=== PATIENT | male | born 1995 | race Caucasian/White ===

== ENCOUNTER 2022-08-05 18:46 | Emergency (ER) | payer OTHER, SELFPAY ==
[2022-08-05 18:52] VITALS: BP 158/84; PULSE 88; RESP 16; TEMP 37.2; O2SAT 99; BMI 34.5
--- NOTE | 2022-08-05 18:59 | DI.RAD.S_ITS ---
PROCEDURE: XR CHEST 1V INDICATIONS: chest pain TECHNIQUE: One view of the chest was acquired. COMPARISON: None. FINDINGS: Surgical changes and devices: None. Lungs and pleura: Lungs are clear. No pleural effusions or pneumothorax. Mediastinum: Mediastinal contours appear normal. Heart size is normal. Bones and chest wall: No suspicious bony lesions. Overlying soft tissues appear unremarkable. IMPRESSION: No acute process. Dictated by: Levar Hamilton M.D. on 08/05/2022 at 19:32 Approved by: Levar Hamilton M.D. on 08/05/2022 at 19:32
--- NOTE | 2022-08-05 19:11 | ED.CHESTPAIN ---
HPI - Chest Pain General Chief Complaint: Chest Pain Stated Complaint: chest pain/light headedness/sent by [facility] Time Seen by Provider: 08/05/22 19:03 Source: patient Mode of arrival: Ambulatory Limitations: no limitations History of Present Illness HPI narrative: Patient is sent here for walk-in clinic. Patient has had intermittent substernal left upper quadrant sometimes right-sided and left-sided chest discomfort that is burning in nature. Not pressure. No back pain. Has had intermittent dizziness. The symptoms started 8 months ago and maybe once a week he will get this. He has felt more tired in the past 2 months. Patient denies any exertional chest pain. No sweating. No dyspnea. Currently no chest discomfort or abdominal discomfort. Patient has no history of hypertension hyperlipidemia impaired does not smoke cigarettes. No family history of coronary disease. Patient has low heart score. Patient does not have a family doctor. No previous cardiac workup. No history of heart attack strokes or diabetes. No history of aortic aneurysm or dissection. No history of pulmonary embolism. No recent long travel. Patient states sometimes the burning is worse after eating. Not worse with lying flat. Related Data Allergies Allergy/AdvReac Type Severity Reaction Status Date / Time No Known Drug Allergies Allergy Verified 08/05/22 18:52 Review of Systems Review of Systems Narrative: GENERAL: negative chills, fatigue, malaise, fever, sweats. HEENT: negative sinus pain, ear pain, sore throat RESPIRATORY: negative dyspnea, cough CARDIOVASCULAR: Positive chest pain, negative palpitations GASTROINTESTINAL: negative nausea, vomiting, abdominal pain : negative dysuria, frequency, hematuria MUSCULOSKELETAL: negative muscle or bony pain SKIN: negative rash, skin lesions NEUROLOGIC: negative weakness, numbness, positive intermittent dizziness ROS Unobtainable: All systems reviewed & are unremarkable except as noted in HPI and below Patient History Social History Smoking Status: Former smoker Smoking Status: Former smoker tobacco type: vaping alcohol intake frequency: a few times a month Substance Use Type: does not use Exam Narrative Exam Narrative: GENERAL: in no distress, not toxic not dyspneic HEAD: Normocephalic. EYES: Pupils equal round ENT: Mucous membranes moist. NECK: Trachea midline. CARDIOVASCULAR: Regular rate and rhythm without murmurs, chest is nontender, strong bilateral carotid and radial pulses. Brisk cap refills on the fingers RESPIRATORY: Clear to auscultation. Breath sounds equal bilaterally. No wheezes, rales, or rhonchi. GASTROINTESTINAL: Abdomen soft, non-tender, abdomen soft nontender no peritoneal signs no left upper quadrant epigastric or right upper quadrant tenderness. EXTREMITIES: No gross deformities. BACK: No flank tenderness. NEURO: AOx4. SKIN: Warm and dry PSYCH: Not anxious, is cooperative Initial Vital Signs Initial Vital Signs: Vital Signs Temperature 98.9 F 08/05/22 18:52 Pulse Rate 88 08/05/22 18:52 Respiratory Rate 16 08/05/22 18:52 Blood Pressure 158/84 H 08/05/22 18:52 Pulse Oximetry 99 08/05/22 18:52 Oxygen Delivery Method Room Air 08/05/22 18:52 Scores HEART Score Heart Score history: Slightly Suspicious Heart Score EKG: Normal Heart Score Age: < 45 years old Heart Score risk factors: No known risk factors Heart Score troponin: < or = to normal limit Heart Score Total: 0 Course Orders Ordered: Discontinued Medications Aspirin (Aspirin 81 Mg Chew Tab) 324 mg PO NOW ONE Stop: 08/05/22 19:00 Last Admin: 08/05/22 19:30 Dose: 324 mg Documented By: GABY Vital Signs Vital signs: Vital Signs - 8 hr 08/05/22 21:59 Pulse Rate 86 Respiratory Rate 18 Blood Pressure 138/79 Pulse Oximetry 96 Oxygen Delivery Method Room Air MDM - Chest Pain Lab Data 08/05/22 19:14 08/05/22 19:14 Labs: Lab Results 08/05/22 08/05/22 08/05/22 Range/Units 19:14 19:14 19:14 WBC 7.8 (4.5-11.0) X10^3/uL RBC 5.74 (4.5-5.9) X10^6/uL Hgb 16.3 (13.5-17.5) g/dL Hct 46.9 (41-53) % MCV 81.7 (80-100) fL MCH 28.4 (26-34) PG MCHC 34.7 (30-36) % RDW 13.3 (11.6-14.8) % Plt Count 331 (150-400) X10^3/uL Neut % (Auto) 71.4 (50-75) % Lymph % (Auto) 19.5 L (25-40) % Marshall % (Auto) 7.4 (3-14) % Eos % (Auto) 0.9 L (2-4) % Baso % (Auto) 0.8 (0-2) % Neut # (Auto) 5600 (6649-7394) /uL Lymph # (Auto) 1500 (7055-3920) /uL Marshall # (Auto) 600 (0-900) /uL Eos # (Auto) 100 (0-450) /uL Baso # (Auto) 100 (0-100) /uL PT 12.3 (10.1-12.7) SECONDS INR 1.1 (0.9-1.3) APTT 35 (26-36) SECONDS Sodium 139 (137-145) mmol/L Potassium 4.0 (3.4-5.1) mmol/L Chloride 104 (98-107) mmol/L Carbon Dioxide 27 (22-32) mmol/L BUN 13 (9-20) mg/dL Creatinine 0.86 (0.66-1.25) mg/dL Estimated GFR > 60 (>60) mL/min BUN/Creatinine Ratio 15.1 (6-22) Glucose 95 (70-100) mg/dL Calcium 9.1 (8.4-10.2) mg/dL Magnesium 2.3 (1.6-2.3) mg/dL Total Bilirubin 0.9 (0.2-1.3) mg/dL AST 39 (17-59) IU/L ALT 64 H (<50) IU/L Alkaline Phosphatase 60 (38-126) U/L Total Creatine Kinase 250 H (55-170) U/L CK-MB (CK-2) 2.48 H (<2.37) ng/mL CK-MB (CK-2) Rel Index 1.0 L (1.5-5.0) % Troponin I < 0.012 (0.01-0.034) ng/mL Total Protein 7.9 (6.3-8.2) g/dL Albumin 4.7 (3.5-5.0) g/dL Globulin 3.2 (1.7-4.1) g/dL Albumin/Globulin Ratio 1.5 (1.0-2.8) Lipase 52 (23-300) U/L 08/05/22 Range/Units 20:53 WBC (4.5-11.0) X10^3/uL RBC (4.5-5.9) X10^6/uL Hgb (13.5-17.5) g/dL Hct (41-53) % MCV (80-100) fL MCH (26-34) PG MCHC (30-36) % RDW (11.6-14.8) % Plt Count (150-400) X10^3/uL Neut % (Auto) (50-75) % Lymph % (Auto) (25-40) % Marshall % (Auto) (3-14) % Eos % (Auto) (2-4) % Baso % (Auto) (0-2) % Neut # (Auto) (7219-4630) /uL Lymph # (Auto) (1971-0054) /uL Marshall # (Auto) (0-900) /uL Eos # (Auto) (0-450) /uL Baso # (Auto) (0-100) /uL PT (10.1-12.7) SECONDS INR (0.9-1.3) APTT (26-36) SECONDS Sodium (137-145) mmol/L Potassium (3.4-5.1) mmol/L Chloride (98-107) mmol/L Carbon Dioxide (22-32) mmol/L BUN (9-20) mg/dL Creatinine (0.66-1.25) mg/dL Estimated GFR (>60) mL/min BUN/Creatinine Ratio (6-22) Glucose (70-100) mg/dL Calcium (8.4-10.2) mg/dL Magnesium (1.6-2.3) mg/dL Total Bilirubin (0.2-1.3) mg/dL AST (17-59) IU/L ALT (<50) IU/L Alkaline Phosphatase (38-126) U/L Total Creatine Kinase 228 H (55-170) U/L CK-MB (CK-2) 2.50 H (<2.37) ng/mL CK-MB (CK-2) Rel Index 1.1 L (1.5-5.0) % Troponin I < 0.012 (0.01-0.034) ng/mL Total Protein (6.3-8.2) g/dL Albumin (3.5-5.0) g/dL Globulin (1.7-4.1) g/dL Albumin/Globulin Ratio (1.0-2.8) Lipase (23-300) U/L Imaging Data Chest x-ray: Radiologist's Impression: PROCEDURE:? XR CHEST 1V ? INDICATIONS:? chest pain ? TECHNIQUE:? One view of the chest was acquired.? ? COMPARISON:? None. ? FINDINGS:? ? Surgical changes and devices:? None.? ? Lungs and pleura:? Lungs are clear.? No pleural effusions or pneumothorax.? ? Mediastinum:? Mediastinal contours appear normal.? Heart size is normal.? ? Bones and chest wall:? No suspicious bony lesions.? Overlying soft tissues appear unremarkable.? ? IMPRESSION:? No acute process. MDM Narrative Medical decision making narrative: Patient is sent here for walk-in clinic. Patient has had intermittent substernal left upper quadrant sometimes right-sided and left-sided chest discomfort that is burning in nature. Not pressure. No back pain. Has had intermittent dizziness. The symptoms started 8 months ago and maybe once a week he will get this. He has felt more tired in the past 2 months. Patient denies any exertional chest pain. No sweating. No dyspnea. Currently no chest discomfort or abdominal discomfort. Patient has no history of hypertension hyperlipidemia impaired does not smoke cigarettes. No family history of coronary disease. Patient has low heart score. Patient does not have a family doctor. No previous cardiac workup. No history of heart attack strokes or diabetes. No history of aortic aneurysm or dissection. No history of pulmonary embolism. No recent long travel. Patient states sometimes the burning is worse after eating. Not worse with lying flat. After history and exam CBC CMP lipase troponin EKG chest x-ray, no D-dimer indicated at this time, low risk factors for dissection or pulmonary embolism. Does not clinically correlate MDM CC: Chest pain Complicating co-morbidities: None Data collected from: Patient Medical records reviewed: No previous visits here other than walk-in clinic sent patient here without workup Differential considered: Includes but not limited to STEMI non-STEMI stable angina unstable angina pulmonary embolism aortic dissection acid reflux gastritis pancreatitis costochondritis pleurisy Exam documented above, pertinent findings include: Nontender chest nontender abdomen Lab Test results independently reviewed as above. Pertinent findings: Total creatinine kinase 250 CK-MB 2.48 CK-MB 1.0 troponin less than 0.012, repeat troponin less than 0.012 Independently reviewed EKG as above normal sinus rhythm rate [address] elevation depression Imaging studies independently reviewed: Chest x-ray no acute process Consultations: 9:45 p.m.. Spoke with cardiology, dr lama, appropriate for discharge home. Patient has low heart score. At this time does not sound like cardiac. However would need outpatient stress test to complete workup Treatments: None required here. Patient chest pain-free. Re-evaluations: 9:56 p.m.. Reviewed results with patient. Exam and laboratory studies imaging are reassuring. Reviewed my discussion with cardiology. Patient chest pain-free. Discussion: Appropriate for discharge home. Exam and laboratory studies and imaging are reassuring. Patient has low heart score. 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 Has low risk heart factors. Troponin x2 were negative. No active chest pain here. Patient agrees with treatment plan. Return precautions reviewed with him. He desires discharge home. Patient has components of acid reflux/gastritis. Patient was on omeprazole until 4 months ago when he stopped taking it. Encouraged him to resume taking it. Diagnosis: Atypical chest pain Discharge Plan Departure Patient Disposition: Home Clinical Impression: Atypical chest pain Instructions: DI for Atypical Chest Pain Activity Restrictions/Additional Instructions: See family doctor in a week for re-evaluation of your chest discomfort and to schedule for outpatient cardiac stress test and echocardiogram of the heart. Call provided primary care referral phone number to establish family doctor. Call [phone]. Return if worse if any questions or concerns. At this time your laboratory studies and blood work and chest x-ray and EKG are reassuring. Referrals: Doctor Escudero MD [Primary Care Provider] - Stand Alone Forms: Patient Portal/API
[2022-08-05 19:24] LABS: Add Manual Diff / Slide Review NO; Basophils Absolute Auto 100 /uL (0-100); Basophils Percent Auto 0.8 % (0-2); Eosinophils Absolute Auto 100 /uL (0-450); Eosinophils Percent Auto 0.9 % (2-4); Hematocrit 46.9 % (41-53); Hemoglobin 16.3 g/dL (13.5-17.5); Lymphocytes Absolute Auto 1500 /uL (1100-4500); Lymphocytes Percent Auto 19.5 % (25-40); Mean Corpuscular HGB Conc 34.7 % (30-36); Mean Corpuscular Hemoglobin 28.4 PG (26-34); Mean Corpuscular Volume 81.7 fL (80-100); Monocytes Absolute Auto 600 /uL (0-900); Monocytes Percent Auto 7.4 % (3-14); Neutrophils Absolute Auto 5600 /uL (1500-7000); Neutrophils Percent Auto 71.4 % (50-75); Platelet Count 331 X10^3/uL (150-400); Red Blood Cell Count 5.74 X10^6/uL (4.5-5.9); Red Cell Distribution Width 13.3 % (11.6-14.8); White Blood Cell Count 7.8 X10^3/uL (4.5-11.0)
[2022-08-05] MEDS: ASPIRIN 81 MG CHEW TAB 324 MG PO (19:30)
[2022-08-05 19:32] LABS: INR 1.1 (0.9-1.3); Prothrombin Time 12.3 SECONDS (10.1-12.7)
[2022-08-05 19:34] LABS: PTT Partial Thromboplastin Tim 35 SECONDS (26-36)
[2022-08-05 19:36] LABS: Alanine Aminotransferase 64 IU/L (<50); Albumin 4.7 g/dL (3.5-5.0); Albumin Globulin Ratio 1.5 (1.0-2.8); Alkaline Phosphatase 60 U/L (38-126); Aspartate Aminotransferase 39 IU/L (17-59); BUN Creatinine Ratio 15.1 (6-22); Bilirubin Total 0.9 mg/dL (0.2-1.3); Blood Urea Nitrogen 13 mg/dL (9-20); Calcium 9.1 mg/dL (8.4-10.2); Carbon Dioxide 27 mmol/L (22-32); Chloride 104 mmol/L (98-107); Creatine Kinase 250 U/L (55-170); Estimated Glomerular Filt Rate > 60 mL/min (>60); Globulin 3.2 g/dL (1.7-4.1); Glucose 95 mg/dL (70-100); HEMOLYSIS < 15 (0-50); Lipase 52 U/L (23-300); Magnesium 2.3 mg/dL (1.6-2.3); Sodium 139 mmol/L (137-145); Total Protein 7.9 g/dL (6.3-8.2)
[2022-08-05 19:48] LABS: Troponin I < 0.012 ng/mL (0.01-0.034)
[2022-08-05 19:51] LABS: Creatine Kinase MB 2.48 ng/mL (<2.37)
[2022-08-05 21:07] LABS: Creatine Kinase 228 U/L (55-170)
[2022-08-05 21:19] LABS: Troponin I < 0.012 ng/mL (0.01-0.034)
[2022-08-05 21:23] LABS: CKMB % Relative Index 1.1 % (1.5-5.0)
[2022-08-05 21:59] VITALS: BP 138/79; PULSE 86; RESP 18; O2SAT 96
== END 2022-08-05 21:59 | disposition home or self-care (01) ==
PROVIDERS: Emergency Provider Emergency Medicine
DX: R07.89 Other chest pain (principal); R42 Dizziness and giddiness
CPT/HCPCS: 36415; 71045; 80053; 82550; 82553; 83690; 83735; 84484; 85025; 85610; 85730; 93005; 99284